=== PATIENT | male | born 1975 | race Two or more races ===

== ENCOUNTER 2025-09-28 11:05 | Emergency (ER) | payer OTHER ==
[~2025-09-28] VITALS: Ht 195.6 cm; Wt 95.3 kg
[2025-09-28] MEDS ORDERED: METHYLPREDNISOLONE SOD SUCC 40 MG VIAL IM ONE (12:30)
[2025-09-28] MEDS ORDERED: IPRATROPIUM/ALBUTEROL SULFATE 3 ML AMPUL.NEB IH ONE (12:30)
[2025-09-28] MEDS ORDERED: GUAIFENESIN 200 MG/10 ML BLIST.PACK PO ONE (12:30)
[2025-09-28 13:12] LABS: BASO % 0.3 % (0.1-1.2); EOS # 0.13 (0.04-0.54); EOS % 1.5 % (0.7-7.0); LYMPH # 2.36 (1.18-3.74); LYMPH % 26.7 % (19.3-53.1); MEAN PLATELET VOLUME 9.80 fl (9.4-12.4); MONO # 0.94 (0.24-0.82); MONO % 10.6 % (4.7-12.5); NEUT # 5.37 (1.56-6.13); NEUT % 60.7 % (34.0-71.1); RED CELL DISTRIBUTION WIDTH 12.8 % (11.6-14.4)
[2025-09-28 13:35] LABS: COVID-19 AG NEGATIVE (NEGATIVE)
[2025-09-28 13:57] LABS: BUN CREA RATIO 19.0 (7.0-25.0); CREATININE SERUM 0.99 mg/dL (0.70-1.30); GFR 80.68; GLUCOSE FASTING 103.0 mg/dL (65-100); OSMOLALITY SERUM 291.0 MOSM/KG (275-295)
[2025-09-28] MEDS ORDERED: BENZONATATE100 MG PO (14:28)
[2025-09-28] MEDS ORDERED: TUSSIN DM MAX118 ML PO (14:28)
== END 2025-09-28 14:34 | disposition home or self-care (01) ==
LOC: ER 11:05
PROVIDERS: Student in an Organized Health Care Education/Training Program
DX: B34.9 Viral infection, unspecified (principal); R58 Hemorrhage, not elsewhere classified; R51.9 Headache, unspecified; Z20.822 Contact with and (suspected) exposure to COVID-19